=== PATIENT | male | born 1995 | race Caucasian/White ===

== ENCOUNTER → 2019-01-27 11:13 | Outpatient (CLI) | payer MEDICAID, SELFPAY ==
--- NOTE | 2019-01-27 11:25 | RAD_ITS ---
STUDY: X-RAY CHEST REASON FOR EXAM: Male, 23 years old. Bronchitis. TECHNIQUE: PA and lateral views of the chest. COMPARISON: None. FINDINGS: The lungs are mildly hyperexpanded. There is no demonstrated pleural abnormality. Normal size heart. Sternal cerclage wires are present from a prior sternotomy. Normal mediastinum and nikita. Normal visualized pulmonary arteries. Normal visualized aortic arch and descending thoracic aorta. There is a 21 degree dextroscoliosis of the spine centered at T11-12, and mild compensatory levoscoliosis in the upper thoracic region. There is also a moderate lower thoracic lordosis. Normal visualized ribs, clavicles, and shoulders. There is no demonstrated abnormality of the visualized soft tissue structures of the upper abdomen. RAD/Chest PA and Lateral IMPRESSION: 1. There is some hyperexpansion, which could reflect acute or chronic obstructive disease, such as bronchitis. No pneumonic infiltrate. 2. Prior median sternotomy. The heart size and pulmonary vascular pattern are normal. 3. Notable dextroscoliosis and lordosis of the lower thoracic spine. Electronically Signed: Alan Bundy MD at 13:04 EDT , Service support ,
== END ==
PROVIDERS: Family Provider Family Medicine; PCP Family Medicine; Referring Provider Family Medicine; Visit Provider Family Medicine
DX: J20.9 Acute bronchitis, unspecified (principal)
CPT/HCPCS: 71046

== ENCOUNTER 2019-03-04 13:18 | Emergency (ER) | payer MEDICAID, SELFPAY ==
[2019-03-04 13:19] VITALS: BP 126/86; PULSE 102; RESP 20; TEMP 36.8; O2SAT 100; BMI 19.4
--- NOTE | 2019-03-04 13:29 | EKG12_ITS ---
Test Reason : CP Blood Pressure : / mmHG Vent. Rate : 082 BPM Atrial Rate : 082 BPM P-R Int : 142 ms QRS Dur : 078 ms QT Int : 330 ms P-R-T Axes : 072 123 077 degrees QTc Int : 385 ms Sinus rhythm with marked sinus arrhythmia Right axis deviation Abnormal ECG Confirmed by CRISTINA GRACE ([id number]), research editor MODE ORNELAS ([id number]) on 03/08/2019 2:38:43 PM Referred By: YAMILA Confirmed By:CRISTINA GRACE
--- NOTE | 2019-03-04 13:29 | RAD_ITS ---
STUDY: X-RAY CHEST REASON FOR EXAM: Male, 23 years old. Left-sided chest pain. Patient has a history of esophageal carcinoma. TECHNIQUE: PA and lateral views of the chest. COMPARISON: Comparison is made with prior study dated January 27, 2019. FINDINGS: EKG electrodes are seen. The lungs are clear and expanded. There is no demonstrated pleural abnormality. Sternal cerclage wires are present from a prior sternotomy. Normal mediastinum and nikita. Normal visualized pulmonary arteries. Normal visualized aortic arch and descending thoracic aorta. There is a dextroscoliosis of the thoracic spine. Levoscoliosis of the lumbar spine. Normal visualized ribs, clavicles, and shoulders. There is no demonstrated abnormality of the visualized soft tissue structures of the upper abdomen. RAD/Chest PA and Lateral IMPRESSION: No acute abnormality is seen. Electronically Signed: Jaylen Mcclain, at 13:59 EDT , Service support ,
[2019-03-04 13:36] VITALS: O2SAT 98
[2019-03-04 13:40] LABS: Absolute Lymphocyte Count 1.46 X10^3/uL (0.83-4.51); Absolute Neutrophil Count 3.8 X10^3/uL (2.0-7.7); Basophil# 0.04 X10^3/uL; Basophil% 0.7 % (0-1); Eosinophils% 1.7 % (0-5); Hematocrit 46.3 % (40-54); Hemoglobin 16.1 g/dL (13.0-16.5); Lymphocyte # 1.46 X10^3/ul (4.0); Lymphocyte % 25.4 % (19-41); Mean Corp Hgb Conc 34.8 g/dL (32-36); Mean Corpuscular Hgb 30.4 pg (27.0-32.0); Mean Corpuscular Volume 87.4 fL (80-94); Mean Platelet Vol. 10.1 fl (6.2-12.0); Monocyte# 0.36 X10^3/uL; Monocyte% 6.3 % (0-10); NRBC Flagged by Analyzer 0 % (0-5); Neutrophil # 3.78 X10^3/uL (2.7-7.7); Neutrophil % 65.7 % (47-70); Platelet Count 182 K/mm3 (150-450); RBC Distribution Width SD 38.5 fl (35.1-43.9); White Blood Count 5.8 K/mm3 (4.4-11.0)
--- NOTE | 2019-03-04 13:42 | NURSING ---
NO OLD EKG TO OBTAIN
[2019-03-04 13:55] LABS: Anion Gap 9 (5-15); BUN 9 mg/dL (7-18); BUN/Creat Ratio 9.6 RATIO (10-20); Calcium,Total 9.5 mg/dL (8.5-10.1); Chloride 106 mmol/L (98-107); Creatinine, Serum 0.94 mg/dL (0.70-1.30); EST Glomerular Filtration Rate 107 mL/min (>60); Est Glom Filt Rate - Afr Amer 129 mL/min (>60); Estimated Creatinine Clearance 104.97 ml/min; Glucose 104 mg/dL (74-106); Potassium 3.8 mmol/L (3.5-5.1); Sodium Level 143 mmol/L (136-145)
[2019-03-04] MEDS: 0.9% Normal Saline 1,000 ML 999 ML IV (13:56)
--- NOTE | 2019-03-04 14:33 | ED.VIS.CHEST ---
History of Present Illness Chief Complaint: Chest Pain Informant: Patient Narrative: Patient presenting for evaluation secondary to chest pain. Patient states that he has been having chest pain intermittently over the course of the last couple of days. Is not exertional. He states that it will come and go last for a period of time. He states that it associated with some lightheadedness and shortness of breath. Patient states that he had a more severe episode today while he was at rest in the kitchen. Patient called EMS, was given aspirin and nitro and brought to the hospital. Patient has an underlying history of pediatric cancer with past radiation and chemotherapy treatments to his throat. He denies any cardiovascular history, hypertension, hyperlipidemia, smoking, he does have a family history of premature heart disease. He denies any DVT or PE risk factors. Denies any recent travel or surgery, active cancer, hemoptysis, hormone use. Review of systems otherwise negative. Past Medical History - Allergies and Home Meds Allergies/Adverse Reactions: Allergies propofol Allergy (Verified 03/04/19 13:23) Other Primary Care Physician: Donny Cantu MD [Primary Care Provider] - Past Medical History: - - Pediatric throat cancer Smoking Status: Never smoker Review of Systems All systems negative except as indicated Cardiovascular: Reports: Chest pain Respiratory: Reports: Dyspnea Physical Exam Vital Signs/Narrative: Vital Signs Temp Pulse Resp BP Pulse Ox 03/04/19 13:36 98 03/04/19 13:19 98.3 F 102 H 20 H 126/86 H 100 General: - - Tall and thin, well-developed no acute distress Head: Normocephalic, Atraumatic Eyes: Perrl, EOMI ENT: Moist mucous membranes, No rhinorrhea Neck: Supple, Nontender, No JVD Cardiovascular: Regular rate, Regular rhythm, No murmurs, - - 2+ radial pulses bilaterally symmetric, 2+ DP pulses bilaterally symmetric Respiratory: No distress, CTA bilaterally, Chest nontender, - - No evidence of pectus excavatum. Midline sternotomy scar noted. Abdomen: Soft, Nontender, Nondistended, Normal bowel sounds Back: Nontender, Normal Inspection Extremities: Nontender, No edema Skin: Normal color, No rash Neurological: Alert, Oriented x3, Cranial nerves II-XII grossly intact, Normal Strength, Normal Sensation Psychological: Normal affect, Normal Mood Diagnostic/Tx/Re-eval Chest X-Ray - ED: - - PA lateral chest x-ray by my personal interpretation as well as radiology demonstrates scoliosis, no evidence of cardiomegaly, normal mediastinum with no evidence of widening. No evidence of acute pathology. - EKG Initial EKG Interpretation: - - Sinus rhythm of 82. Right axis deviation. sinus arrhythmia. Normal ST segments, twave, normal intervals. No WPW or brugada. - Medical Decision Making Patient presented secondary to chest pain. CBC chemistry troponin were found to be unremarkable. EKG demonstrated a right axis deviation but no evidence of ventricular strain and I do not believe this to be pathologic. Chest x-ray shows normal caliber mediastinum. Patient is tall and thin but does not have any history of connective tissue disease, and does not seem to have stigmata of a aortic dissection or thoracic aneurysm. I do not believe that further imaging is indicated. Patient's heart score is low risk and believe he is appropriate for discharge. He was given reassurance and will follow-up with primary care. ED Disposition - Plan for ED Patient: Disposition: Home or Assisted Living Diagnosis: Chest pain Instructions: CHEST PAIN, Uncertain Cause Referrals: Donny Cantu MD [Primary Care Provider] - 1 Week
[2019-03-04 14:34] VITALS: BP 116/78; PULSE 72; RESP 17; O2SAT 98
== END 2019-03-04 14:50 | disposition home or self-care (01) ==
PROVIDERS: Emergency Provider Emergency Medicine; Family Provider Family Medicine; PCP Family Medicine
DX: R07.89 Other chest pain (principal); R06.02 Shortness of breath; R42 Dizziness and giddiness
CPT/HCPCS: 71046; 80048; 84484; 85025; 93005; 96360; 99285; J7030; A4216

== ENCOUNTER 2019-03-06 10:53 | Emergency (ER) | payer MEDICAID, SELFPAY ==
[2019-03-06 10:53] VITALS: BP 117/64; PULSE 79; RESP 18; TEMP 36.6; O2SAT 99; BMI 17.9
--- NOTE | 2019-03-06 11:10 | RAD_ITS ---
STUDY: X-RAY CHEST REASON FOR EXAM: Male, 23 years old. Chest pain. TECHNIQUE: PA and lateral views of the chest. COMPARISON: 03/04/2019. FINDINGS: The lungs are clear and expanded. There is no demonstrated pleural abnormality. Sternal cerclage wires are present from a prior sternotomy. The heart size is normal. Normal mediastinum and nikita. Normal visualized pulmonary arteries. Normal visualized aortic arch and descending thoracic aorta. There again is dextroscoliosis and increased kyphosis of the thoracic spine. There is decrease height of upper thoracic vertebrae. Normal visualized ribs, clavicles, and shoulders. There is no demonstrated abnormality of the visualized soft tissue structures of the upper abdomen. RAD/Chest PA and Lateral IMPRESSION: No active pulmonary disease. Electronically Signed: Salvatore Zuleta MD at 12:02 EDT Tel , Service support ,
--- NOTE | 2019-03-06 11:10 | EKG12_ITS ---
Test Reason : CP Blood Pressure : / mmHG Vent. Rate : 068 BPM Atrial Rate : 068 BPM P-R Int : 168 ms QRS Dur : 082 ms QT Int : 374 ms P-R-T Axes : 061 104 078 degrees QTc Int : 397 ms Normal sinus rhythm with sinus arrhythmia Rightward axis Borderline ECG Confirmed by CRISTINA GRACE ([id number]), book or script editor ALYSIA STEELE ([id number]) on 03/15/2019 2:29:51 PM Referred By: [email or web address] Confirmed By:CRISTINA GRACE
[2019-03-06] MEDS: Ketorolac 15 MG/ML Vial IV (11:31)
[2019-03-06 11:32] LABS: Absolute Neutrophil Count 3.2 X10^3/uL (2.0-7.7); Basophil# 0.05 X10^3/uL; Eosinophil# 0.09 X10^3/uL; Eosinophils% 1.8 % (0-5); Hematocrit 44.9 % (40-54); Hemoglobin 15.4 g/dL (13.0-16.5); Lymphocyte % 24.4 % (19-41); Mean Corp Hgb Conc 34.3 g/dL (32-36); Mean Corpuscular Hgb 30.5 pg (27.0-32.0); Mean Corpuscular Volume 88.9 fL (80-94); Mean Platelet Vol. 10.6 fl (6.2-12.0); Monocyte# 0.35 X10^3/uL; Monocyte% 7.1 % (0-10); NRBC Flagged by Analyzer 0 % (0-5); Neutrophil # 3.21 X10^3/uL (2.7-7.7); Neutrophil % 65.3 % (47-70); Platelet Count 177 K/mm3 (150-450); RBC Distribution Width CV 12.1 % (11.6-14.6); RBC Distribution Width SD 39.2 fl (35.1-43.9); Red Blood Count 5.05 M/mm3 (4.6-6.2); White Blood Count 4.9 K/mm3 (4.4-11.0)
[2019-03-06 11:37] LABS: Erythrocyte Sedimentation Rate < 1 mm/hr (0-15)
[2019-03-06 11:45] LABS: D-Dimer Quantitative (DVT/PE) < 0.27 FEU/ug/m (0.27-0.49)
[2019-03-06 11:54] LABS: Anion Gap 7 (5-15); BUN 9 mg/dL (7-18); BUN/Creat Ratio 10.3 RATIO (10-20); Calcium,Total 9.2 mg/dL (8.5-10.1); Chloride 107 mmol/L (98-107); Creatinine, Serum 0.88 mg/dL (0.70-1.30); EST Glomerular Filtration Rate 116 mL/min (>60); Est Glom Filt Rate - Afr Amer 140 mL/min (>60); Estimated Creatinine Clearance 103.11 ml/min; Glucose 88 mg/dL (74-106); Magnesium 1.9 mg/dL (1.6-2.6); Potassium 3.9 mmol/L (3.5-5.1); Sodium Level 143 mmol/L (136-145); Thyroid Stim Hormone (TSH) 2.82 uIU/mL (0.358-3.74)
--- NOTE | 2019-03-06 12:27 | ED.VIS.CHEST ---
History of Present Illness Chief Complaint: Chest Pain Informant: Patient Narrative: Patient presenting for evaluation secondary to chest pain. Patient has an underlying history of pediatric throat cancer with history of surgery, radiation, and chemotherapy in the distant past. Patient was here 3 days ago with chest pain, had a work-up that was negative. He reports that he had improvement of that pain, but then today he had reemergence of the pain. He was at rest, is sharp, and is located in his left chest and seemed worse with taking deep breath and associated with some shortness of breath. Patient denies any hemoptysis. He denies any history of DVT or PE. Denies any fevers or onset of infection cough nausea vomiting diarrhea or any skin changes. Review of systems otherwise negative. Past Medical History - Allergies and Home Meds Allergies/Adverse Reactions: Allergies propofol Allergy (Verified 03/04/19 13:23) Other Primary Care Physician: Donny Cantu MD [Primary Care Provider] - Past Medical History: - - Pediatric cancer Smoking Status: Never smoker Review of Systems All systems negative except as indicated Cardiovascular: Reports: Chest pain Respiratory: Reports: Dyspnea Physical Exam Vital Signs/Narrative: Vital Signs Temp Pulse Resp BP Pulse Ox 03/06/19 10:53 97.8 F 79 18 117/64 99 Inital Vital Signs reviewed: Yes General: No Acute Distress, - - Tall thin male Head: Normocephalic, Atraumatic Eyes: Perrl, EOMI ENT: Moist mucous membranes, No rhinorrhea Neck: Supple, Nontender Cardiovascular: Regular rate, Regular rhythm, No murmurs, - - 2+ radial and PT pulses bilaterally symmetric Respiratory: No distress, CTA bilaterally, Chest nontender, - - Midline surgical scar well-healed. No evidence of pectus excavatum. Abdomen: Soft, Nontender, Nondistended, Normal bowel sounds Back: Nontender, Normal Inspection Extremities: Nontender, No edema Skin: Normal color, No rash Neurological: Alert, Oriented x3, Cranial nerves II-XII grossly intact, Normal Strength, Normal Sensation Psychological: Normal affect, Normal Mood Diagnostic/Tx/Re-eval Chest X-Ray - ED: Read by ED Physician, Read by Radiologist, Unchanged - EKG Initial EKG Interpretation: - - Sinus rhythm at 68 with right axis deviation and sinus arrhythmia. Isoelectric ST segments normal T waves. No evidence of acute ischemia or arrhythmia. - Medical Decision Making Patient presented secondary to chest pain. I actually saw this patient 3 days ago and performed his work-up that was negative and discharge the patient. Broader work-up was obtained today. EKG found to be negative. Chest x-ray also found to be negative. CBC chemistry were unremarkable. Troponin again was negative, a d-dimer was performed at this time which was negative, TSH was added which was negative, and magnesium was also obtained which was found to be normal. I added on ESR due to the potential for pericarditis and this was also found to be negative. Patient at this point has no signs of pericarditis, endocarditis, myocarditis, I do not believe that this is a presentation of a thoracic aneurysm or dissection, he has a negative d-dimer making the likelihood of pulmonary embolism very unlikely. He has benign physical exam normal oxygenation and normal vital signs and his heart score is 0. I do not feel the patient requires admission, and this likely is either costochondritis or pleurisy. Patient will be placed on a course of NSAIDs, as well as omeprazole to prevent side effects. ED Disposition - Plan for ED Patient: Disposition: Home or Assisted Living Diagnosis: Pleurisy Instructions: Pleurisy Prescriptions: Naproxen [Naprosyn] 500 mg PO BID #20 tablet Referrals: Donny Cantu MD [Primary Care Provider] - As soon as possible
[2019-03-06 13:00] VITALS: BP 121/68; PULSE 57; RESP 18; O2SAT 99
--- NOTE | 2019-03-06 13:11 | CT_ITS ---
STUDY: CTA CHEST REASON FOR EXAM: Male, 23 years old. Chest pain for 3 days. History of esophageal cancer. RADIATION DOSAGE (If Supplied By Facility): CTDIvol = ( 2.45 ) mGy, DLP = ( 113.54 ) mGycm TECHNIQUE: The examination was performed with the intravenous administration of 75 IV Isovue 370. Post-processing of the angiographic images was performed, with multiplanar reformation. Individualized dose optimization techniques were used for this CT. COMPARISON: None. FINDINGS: Normal enhancement of the main pulmonary artery and right and left pulmonary arteries. Normal enhancement of the bilateral peripheral pulmonary arteries. There is no demonstrated pulmonary embolism. Normal thoracic aorta and visualized great vessels. There is no demonstrated aortic dissection. Sternal cerclage wires are present from a prior sternotomy. Normal mediastinum. Normal hilar regions. The esophagus is somewhat air-filled but difficult to evaluate on this exam. Normal visualized trachea and bronchi. The lungs are well expanded. There are no pulmonary infiltrates. There are no pleural effusions. Normal chest wall structures. There is decrease height of upper thoracic vertebrae. There is increased kyphosis of the upper thoracic spine. Normal visualized upper abdomen. CT/Chest WITH Contrast IMPRESSION: 1. No evidence of pulmonary embolism. 2. No evidence of infiltrates or pleural effusions. Electronically Signed: Salvatore Zuleta MD at 14:05 EDT Tel , Service support ,
[2019-03-06 15:13] VITALS: BP 135/77; PULSE 62; RESP 15; O2SAT 98
== END 2019-03-06 15:14 | disposition home or self-care (01) ==
PROVIDERS: Emergency Provider Emergency Medicine; Family Provider Family Medicine; PCP Family Medicine
DX: R09.1 Pleurisy (principal)
CPT/HCPCS: 71046; 71260; 80048; 83735; 84443; 84484; 85025; 85379; 85652; 93005; 96374; 99285; J7030; Q9967; A4216

== ENCOUNTER → 2019-12-23 13:23 | Outpatient (CLI) | payer MEDICAID, SELFPAY ==
[2019-12-24 12:01] LABS: Hepatitis B Surface Antibody Reactive; Rubella IgG 295.7 IU/mL
[2019-12-25 20:07] LABS: QNTFERON TB Mitogen Value > 10.00 IU/mL (.); QNTFERON TB Nil Value 0.07 IU/mL (.); QNTFERON TB1+ Ag Value 0.04 IU/mL (.); QNTFERON TB2+ Ag Value 0.02 IU/mL (.)
[2019-12-25 22:36] LABS: Mumps Antibody,IgG 53.8 AU/mL (Immune >10.9); QNTIFERON TB Positive Criteria Negative (Negative); Rubeola IgG Ab 45.1 AU/mL (Immune >16.4)
== END ==
PROVIDERS: PCP Family Medicine; Visit Provider Family Medicine
DX: Z00.00 Encounter for general adult medical examination without abnormal findings (principal); Z23 Encounter for immunization; Z28.3 Underimmunization status
CPT/HCPCS: 36415; 86480; 86706; 86735; 86762; 86765

== ENCOUNTER → 2020-01-20 10:12 | Outpatient (CLI) | payer MEDICAID, SELFPAY | PROVIDERS: PCP Family Medicine; Visit Provider Family Medicine | DX: Z02.1 Encounter for pre-employment examination (principal) ==

== ENCOUNTER 2020-06-25 13:43 | Emergency (ER) | payer MEDICAID, SELFPAY ==
[2020-06-25 13:43] VITALS: BP 116/70; PULSE 81; RESP 16; TEMP 36.8; O2SAT 97; BMI 18.4
--- NOTE | 2020-06-25 13:56 | RAD_ITS ---
STUDY: X-RAY - LEFT HAND REASON FOR EXAM: Male, 25 years old. lump in center of hand, no injury -- pain for a couple days TECHNIQUE: 3 view(s) of the hand. COMPARISON: None. FINDINGS: 3 views of the left hand demonstrate no evidence for acute fractures or dislocation. Overall alignment appears satisfactory. Metacarpal bones are intact. Metacarpal phalangeal joints are intact. No evidence for avulsion injuries. Soft tissue prominence in the left hand seen. Please consider MRI exam for complete assessment. IMPRESSION: No acute osseous abnormalities. Soft tissue fullness in the left hand which can be assessed with MRI exam. No osseous erosions however noted. Electronically Signed: Jj Vaughan, at 14:53 EST Tel , Service support , RAD/Hand Min 3 Views
--- NOTE | 2020-06-25 14:01 | ED.DCSUM_ITS ---
History of Present Illness Chief Complaint: Upper Extremity Injury Informant: Patient Narrative: Patient is a 25-year-old male with a past medical history of throat cancer status post chemotherapy and in remission since 2012 who presents to the emergency department for left hand pain. He states that initially started yesterday. He does feel a lump in the palm of his hand. He is never had this before. He is right-handed at baseline. 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 He denies any injury to the area. At rest the pain is only 1 out of 10 but whenever he tries to lift or move anything with the hand it becomes severe. No pain going up the arm. Denies any chest pain or shortness of breath. Past Medical History - Allergies and Home Meds Allergies/Adverse Reactions: Allergies propofol Allergy (Verified 06/25/20 13:45) Other Primary Care Physician: Donny Cantu MD [Primary Care Provider] - Prior records reviewed: Yes Smoking Status: Never smoker Review of Systems All systems negative except as indicated General: Denies: Chills, Fever, Sweats ENT: Denies: Sore throat Cardiovascular: Denies: Chest pain, Palpitations Respiratory: Denies: Dyspnea, Cough, Dyspnea on exertion Gastrointestinal: Denies: Abdominal pain, Nausea, Vomiting Musculoskeletal: Reports: Extremity Pain. Denies: Back pain Skin: Denies: Rash, Wounds Neurological: Denies: Headache, Weakness, Numbness Physical Exam Vital Signs/Narrative: Vital Signs Temp Pulse Resp BP Pulse Ox 06/25/20 13:43 98.2 F 81 16 116/70 97 Inital Vital Signs reviewed: Yes General: Well nourished, Well developed, No Acute Distress Head: Normocephalic, Atraumatic Eyes: Perrl, EOMI Neck: Supple Cardiovascular: Regular rate, Regular rhythm, No murmurs Respiratory: No distress, CTA bilaterally, Chest nontender Abdomen: Nondistended Back: Nontender, Normal Inspection Extremities: No edema, Tenderness - To palm of hand. There is a small subcentimeter hard area over the tendon for what appears to be the fourth digit in the palm of the hand. , - - No overlying skin changes. Neurovascular intact. Brisk capillary refill. 2+ radial pulse. Skin: Normal color, No rash Neurological: Alert, Oriented x3, Cranial nerves II-XII grossly intact, Normal Strength, Normal Sensation Psychological: Normal affect, Normal Mood Diagnostic/Tx/Re-eval Chest X-Ray - ED: - - 3 view hand x-ray of the left extremity interpreted by myself. No acute osseous abnormality. No fractures or dislocations. Agree with radiologist interpretation. - Medical Decision Making Patient presents to the ED for left hand pain. He is felt a mass on the palm of his hand. It is very tender on physical exam. Will check x-ray. He otherwise is in no acute distress. X-ray did not show any obvious acute abnormality except for some soft tissue swelling. No evidence of infection. We will give a orthopedic hand referral which they can order an MRI if this continues to cause him significant discomfort. Strict return precautions were discussed with him including any evidence of infection or increased swelling/pain. He understands and is agreeable this plan. Discharged home in stable condition. Advised to rest the hand is much as possible. All questions were answered. ED Disposition - Plan for ED Patient: Disposition: Home or Assisted Living Diagnosis: Hand pain, left Instructions: ED Pain, Acute, Uncertain Cause Referrals: Donny Cantu MD [Primary Care Provider] - Tang Gresham DO [STAFF PHYSICIAN] - 3-5 Days if not improving
[2020-06-25 15:31] VITALS: RESP 15
== END 2020-06-25 15:32 | disposition home or self-care (01) ==
PROVIDERS: Emergency Provider Emergency Medicine; PCP Family Medicine
DX: M79.642 Pain in left hand (principal)
CPT/HCPCS: 73130; 99282

== ENCOUNTER 2021-01-04 08:25 | Emergency (ER) | payer MEDICAID, SELFPAY ==
[2021-01-04 08:26] VITALS: BP 125/76; PULSE 70; RESP 16; TEMP 36.3; O2SAT 99; BMI 20.7
--- NOTE | 2021-01-04 08:55 | RAD_ITS ---
STUDY: X-RAY - LEFT HAND REASON FOR EXAM: Male, 25 years old. Pain and swelling following injury. TECHNIQUE: 3 view(s) of the hand. COMPARISON: None. FINDINGS: Normal radiocarpal articulation. Normal distal radioulnar joint. Normal visualized carpal bones. Normal carpal articulations Normal carpometacarpal articulation of the thumb. Normal second through fifth carpometacarpal joints. Normal metacarpi. Normal metacarpophalangeal joint of the thumb. Normal interphalangeal joint of the thumb. Normal proximal and distal phalanges of the thumb. Normal metacarpophalangeal joints of the second through fifth fingers. Normal proximal and distal interphalangeal joints of the second through fifth fingers. Normal phalanges of the second through fifth fingers. The soft tissue structures are unremarkable. RAD/Hand Min 3 Views IMPRESSION: Normal x-ray examination of the hand. Electronically Signed: Jaylen Mcclain MD at 9:17 EDT , Service support ,
--- NOTE | 2021-01-04 08:56 | EDS_ITS ---
HPI History of Present Illness Chief Complaint: Upper Extremity Injury Narrative Narrative: 25-year-old male presenting with left hand pain on the palm. 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 He said some some slight swelling in the palm of his hand. He denies hearing a pop or crack. He has some numbness and tingling into his fourth and fifth digits. There has been no erythema or rash. He does not believe he had a rope burn of any sort. [facility] Medical History Cancer Home Medications naproxen 500 mg PO BID #20 tab 03/06/19 [Rx Last Taken Unknown] Allergy/AdvReac Type Severity Reaction Status Date / Time propofol Allergy Other Verified 01/04/21 08:28 Social History Smoking Status: Never smoker ROS ROS ED Constitutional Constitutional ED: Denies chills or sweats Eyes Eyes: Denies blurry vision or diplopia ENT ENT ED: Denies rhinorrhea or sore throat Cardiovascular Cardiovascular: Denies chest pain or palpitations Respiratory/Chest Respiratory/Chest: Denies cough or dyspnea Gastrointestinal Gastrointestinal: Denies abdominal pain, nausea or vomiting Musculoskeletal Musculoskeletal: Denies myalgias or neck pain Integumentary Denies abscess or rash Neurologic Neurologic: Reports paresthesias LUE (Left hand fourth and fifth digits); Denies headache(s) Psychiatric Psychiatric: Denies anxiety or depression EXAM Physical Exam Const Vital Signs: 01/04/21 08:26 Temperature 97.3 F L Temperature Source Temporal Pulse Rate 70 Respiratory Rate 16 Blood Pressure 125/76 H Blood Pressure Mean 92 Pulse Ox 99 Oxygen Delivery Method Room Air Positive well nourished General Appearance ED: NAD HEENT normocephalic and atraumatic Eyes PERRL and EOMs intact bilaterally Resp normal respiratory effort Cardio regular rate and regular rhythm Extremity Right Upper Extremity: hand and digits palpation (Tenderness to palpation of the central hand), ROM (Hand health counselor limited secondary to pain), neurovascular exam (Decreased sensation distally over the fourth and fifth digits.) and other (Brisk cap refill to all 5 fingers.) Neuro oriented x3 Sensorium / Orientation: alert Psych mental status grossly normal Skin Lesions: no lesions Rashes: no rashes MDM MDM MDM Narrative Medical decision making narrative: Patient presenting with left hand pain. He states he is having trouble gripping due to pain in the center of his hand. On examination of the left hand it does appear he has what is likely a ganglion cyst. I did obtain an x-ray of the left hand and on my interpretation there is no acute bony abnormality and the radiologist does agree. Patient was given Dr. Baker for follow-up. He is to use ice and NSAIDs at home. Impression: 1. Ganglion cyst Discharge Plan Triage Chief Complaint: Upper Extremity Injury ED Provider: Vahe García Dx/Rx/DC Orders Instructions: ED Ganglion Cyst Prescriptions: No Action naproxen 500 MG tablet 500 mg PO BID Qty: 20 RF: 0 Primary Care Provider: Donny Cantu Referrals: Dennis Baker MD [STAFF PHYSICIAN] - As soon as possible Donny Cantu MD [Primary Care Provider] - Disposition Disposition: Home, Self Care
== END 2021-01-04 10:17 | disposition home or self-care (01) ==
PROVIDERS: Emergency Provider Student in an Organized Health Care Education/Training Program; PCP Family Medicine
DX: M67.442 Ganglion, left hand (principal); Z79.1 Long term (current) use of non-steroidal anti-inflammatories (NSAID)
CPT/HCPCS: 73130; 99282

== ENCOUNTER 2023-10-06 12:50 | Emergency (ER) | payer MEDICAID, SELFPAY ==
[2023-10-06 12:51] VITALS: BP 102/77; PULSE 118; RESP 16; TEMP 38.1; O2SAT 100; BMI 21.2
--- NOTE | 2023-10-06 13:13 | EX.ED.DYSGE1 ---
HPI History of Present Illness Chief Complaint: General Illness Informant: patient Onset/Context/Timing Onset: Today Context: Sudden Onset Timing: Continuous Quality: Dull, pressure Location: Occipital and frontal headache Worsened by: Light Relieved by: Nothing Narrative Narrative: Patient presents with headache, fevers, chills, and nosebleed that began today. Patient states she woke up this morning with nosebleed and headache. Patient states she took his temperature at home and it was up to 101.7. Patient states he had recent strep throat but completed his antibiotics and denies any sore throat at the present time. Patient admits to a slight cough. Patient states his headache starts in the occipital area and radiates around to the frontal area. Patient describes it as dull and pressure. Patient states it is worse with light. Patient admits to some nausea and vomiting with the headache. Patient denies any sick contacts. PFSH PFS Medical History Allergies Asthma Back problem Bone fracture Cancer Mass of left hand Home Medications albuterol sulfate 90 mcg/actuation aerosol inhaler 2 puff inhalation Q4H PRN shortness of breath or wheezing 10/06/23 [History Last Taken Unknown] Allergy/AdvReac Type Severity Reaction Status Date / Time propofol Allergy Severe Other Verified 10/06/23 12:51 Family History Father Anxiety Depression Hypertension Psychiatric care Mother Depression Grandmother Angina at rest Grandfather Alcohol abuse Grandmother Cancer Grandfather Diabetes Surgical History History of cancer surgery Social History Smoking Status: Never smoker alcohol intake: current substance use type: does not use additional social history: Does Take Aspirin Does Take Ibuprofen ROS ROS ED Constitutional Constitutional ED: Reports chills and fever(s) Eyes Eyes: Reports blurry vision; Denies diplopia ENT ENT ED: Denies rhinorrhea or sore throat Cardiovascular Cardiovascular: Denies chest pain or palpitations Respiratory/Chest Respiratory/Chest: Reports cough; Denies dyspnea Gastrointestinal Gastrointestinal: Reports nausea and vomiting Genitourinary Genitourinary ED: Denies dysuria or hematuria Musculoskeletal Musculoskeletal: Reports neck pain; Denies back pain Integumentary Denies abscess or rash Neurologic Neurologic: Reports headache(s); Denies weakness Allergic/Immunologic Allergic/Immunologic ED: Denies mouth swelling or urticaria EXAM Physical Exam Const Vital Signs: 10/06/23 12:51 10/06/23 12:51 Temperature 100.6 F H Temperature Source Oral Pulse Rate 118 H Respiratory Rate 16 Respiratory Effort Normal Non-Labored Respiratory Pattern Normal Blood Pressure 102/77 Blood Pressure Mean 85 Pulse Ox 100 Oxygen Delivery Method Room Air Positive well nourished and well developed General Appearance ED: well developed and NAD HEENT Reports moist mucous membranes Neck supple and no JVD Chest Wall palpation of chest normal Resp normal respiratory effort and clear to auscultation bilaterally Cardio regular rhythm Rate: tachycardic GI non-tender and non-distended Palpation: soft Extremity normal to inspection Neuro oriented x3, CN's II-XII intact bilaterally and no sensory deficits noted Sensorium / Orientation: alert Psych mental status grossly normal Skin no rashes or lesions noted MDM MDM MDM Narrative Medical decision making narrative: Differential diagnosis includes migraine headache, tension headache, viral upper respiratory infection, pneumonia, gastroenteritis, and viral illness. CT scan of the brain will be obtained to assess for intracranial bleeding and mass. CBC will be obtained to assess for leukocytosis and anemia. Basic metabolic profile will be obtained to assess for electrolyte abnormality and renal function. COVID-19, influenza, and RSV PCR will be obtained to assess for viral illness. Lab Data Attestation: I reviewed the patient's lab results. Lab results narrative: CBC was reviewed. There is mild leukocytosis of 14.4. The remainder is within normal limits. Basic metabolic profile was reviewed and was essentially within normal limits. Serum lactate was reviewed and was normal at 1.2. COVID-19 PCR was reviewed and was negative. Influenza PCR was reviewed and was negative for influenza A and influenza B. RSV PCR was reviewed and was negative. Labs: Laboratory Results - last 24 hr 10/06/23 10/06/23 12:57 13:40 WBC 14.4 H RBC 5.21 Hgb 15.3 Hct 46.4 MCV 89.1 MCH 29.4 MCHC 33.0 RDW Std Deviation 40.6 RDW Coeff of Nidia 12.4 Plt Count 202 MPV 10.4 Immature Gran % (Auto) 0.400 Neut % (Auto) 89.3 H Lymph % (Auto) 4.9 L Marshall % (Auto) 5.0 Eos % (Auto) 0.1 Baso % (Auto) 0.3 Absolute Neuts (auto) 12.8 H Absolute Lymphs (auto) 0.70 L Nucleated RBC % 0 Sodium 137 Potassium 3.9 Chloride 102 Carbon Dioxide 29.0 Anion Gap 6 BUN 10 Creatinine 0.78 Estim Creat Clear Calc 131.94 Est GFR (MDRD) Af Amer 155 Est GFR (MDRD) Non-Af 128 BUN/Creatinine Ratio 12.9 Glucose 98 Lactic Acid 1.2 Calcium 9.6 Radiography Chest X-Ray - ED: 2 View, Read by ED Physician, Read by Radiologist and Chronic Changes Diagnostic Testing: Clinical Impression(s) from Imaging Studies Brain CT 10/06/23 13:25 IMPRESSION: Normal unenhanced CT scan of the brain. Electronically Signed: Zaki Ibarra MD at 14:47 EDT Reading Location ID and State: [facility] / [place] , Service support , Chest X-Ray 10/06/23 14:03 IMPRESSION: 1. Chronic hyperinflation of the lungs. Chronic interstitial scarring and bullous cystic changes in the lung apices. 2. No visualized consolidation. Electronically Signed: Zaki Ibarra MD at 14:21 EDT , PA and lateral chest x-ray was obtained. There are 2 views. On my independent interpretation, lung maddox show chronic hyperinflation. There is chronic interstitial scarring and bullous changes in the lung apices. There is normal cardiac silhouette. Bony thorax is normal. There is no acute process noted. Radiologist also interpreted the x-ray and agrees. CT scan of the brain was obtained. There is no acute intracranial abnormality. This was interpreted by the radiologist and was also independently reviewed by myself. Treatment and Re-Evaluation :: Patient was given IV fluids and Tylenol here. Patient was given Reglan and Benadryl. Patient was given a dose of Toradol. Patient was feeling better on reevaluation. Patient was advised of his findings. Patient was instructed to drink plenty of fluids. Patient was instructed to continue Tylenol and ibuprofen as needed for any fevers. Patient was instructed to follow-up with his primary care physician in 5 to 7 days. Patient understood and was agreeable with the plan. All questions were answered. Discharge Plan Triage Chief Complaint: General Illness ED Provider: Andrew Hernandez Dx/Rx/DC Orders Clinical Impression: Viral illness Instructions: ED Viral Syndrome (Adult) Prescriptions: No Action albuterol sulfate 90 mcg/actuation HFA aerosol inhaler 2 puff INHALATION Q4H PRN (Reason: shortness of breath or wheezing) Patient Comments: PLEASE SEE ATTACHED FOR DETAILED DIRECTIONS Primary Care Provider: Lisa Vines NP Referrals: Lisa Vines NP, [employer] [Primary Care Provider] - 3-5 Days Disposition Disposition: Home, Self Care
--- NOTE | 2023-10-06 13:25 | CT_ITS ---
STUDY: CT BRAIN WITHOUT CONTRAST REASON FOR EXAM: Male, 28 years old. Headache RADIATION DOSAGE (If Supplied By Facility): CTDIvol = ( 47.06 ) mGy, DLP = ( 925.62 ) mGycm TECHNIQUE: Transaxial CT imaging of the brain was performed without administration of intravenous contrast material. Individualized dose optimization techniques were used for this CT. COMPARISON: None. FINDINGS: Normal soft tissue structures. Normal calvarium. No extra-axial fluid collection or hydrocephalus is present. No parenchymal edema is seen. Normal size ventricles and extra-axial spaces for the patient''s age. Normal white matter tracts of the cerebral hemispheres. Normal basal ganglia and thalami. Normal brainstem. Normal cerebellum. There is no intracranial hemorrhage. There are no findings of an acute ischemic infarction. Normal visualized paranasal sinuses. CT/Brain/Head without Contrast IMPRESSION: Normal unenhanced CT scan of the brain. Electronically Signed: Zaki Ibarra MD at 14:47 EDT ,
[2023-10-06 13:37] LABS: Absolute Neutrophil Count 12.8 X10^3/uL (2.0-7.7); Basophil# 0.05 X10^3/uL; Basophil% 0.3 % (0-1); Eosinophil# 0.01 X10^3/uL; Eosinophils% 0.1 % (0-5); Hematocrit 46.4 % (40-54); Hemoglobin 15.3 g/dL (13.0-16.5); Lymphocyte % 4.9 % (19-41); Mean Corpuscular Hgb 29.4 pg (27.0-32.0); Mean Corpuscular Volume 89.1 fL (80-94); Mean Platelet Vol. 10.4 fl (6.2-12.0); Monocyte# 0.72 X10^3/uL; NRBC Flagged by Analyzer 0 % (0-5); Neutrophil # 12.82 X10^3/uL (2.7-7.7); Neutrophil % 89.3 % (47-70); Platelet Count 202 K/mm3 (150-450); RBC Distribution Width CV 12.4 % (11.6-14.6); RBC Distribution Width SD 40.6 fl (35.1-43.9); Red Blood Count 5.21 M/mm3 (4.6-6.2); White Blood Count 14.4 K/mm3 (4.4-11.0)
[2023-10-06] MEDS: 0.9% Normal Saline (1000mL) 1,000 ML 1000 ML IV (13:41)
[2023-10-06] MEDS: Acetaminophen 500 MG Tablet 1000 MG PO (13:42)
[2023-10-06 13:45] LABS: Anion Gap 6 (5-15); BUN 10 mg/dL (7-18); BUN/Creat Ratio 12.9 RATIO (10-20); Calcium,Total 9.6 mg/dL (8.5-10.1); Chloride 102 mmol/L (98-107); Creatinine, Serum 0.78 mg/dL (0.70-1.30); EST Glomerular Filtration Rate 128 mL/min (>60); Est Glom Filt Rate - Afr Amer 155 mL/min (>60); Estimated Creatinine Clearance 131.94 ml/min; Glucose 98 mg/dL (74-106); Potassium 3.9 mmol/L (3.5-5.1); Sodium Level 137 mmol/L (136-145)
--- NOTE | 2023-10-06 14:03 | RAD_ITS ---
STUDY: X-RAY CHEST REASON FOR EXAM: Male, 28 years old. Fever TECHNIQUE: PA and lateral views of the chest. COMPARISON: March 06, 2019 FINDINGS: No visualized consolidation. Chronic hyperinflation of the lungs. Chronic interstitial scarring and bullous cystic changes in the lung apices. There is no demonstrated pleural abnormality. Sternal cerclage wires are present from a prior sternotomy. Normal heart size. Normal mediastinum and nikita. Normal visualized pulmonary arteries. Normal visualized aortic arch and descending thoracic aorta. There is a dextroscoliosis of the thoracic spine. Normal visualized ribs, clavicles, and shoulders. There is no demonstrated abnormality of the visualized soft tissue structures of the upper abdomen. RAD/Chest PA and Lateral IMPRESSION: 1. Chronic hyperinflation of the lungs. Chronic interstitial scarring and bullous cystic changes in the lung apices. 2. No visualized consolidation. Electronically Signed: Zaki Ibarra MD at 14:21 EDT ,
[2023-10-06 14:17] LABS: Lactic Acid 1.2 mmol/L (0.4-1.9)
[2023-10-06] MEDS: DiphenhydrAMINE 50 MG/ML Syringe 25 MG IV (14:34)
[2023-10-06] MEDS: Metoclopramide 10 MG/2 ML Vial IV (14:34)
[2023-10-06 14:51] VITALS: BP 103/67; PULSE 91; RESP 20; O2SAT 96
[2023-10-06] MEDS: Ketorolac 30 MG/ML Syringe IV (15:28)
[2023-10-06 15:54] VITALS: BP 105/80; PULSE 89; RESP 18; TEMP 37.3; O2SAT 98
== END 2023-10-06 15:54 | disposition home or self-care (01) ==
PROVIDERS: Emergency Provider Emergency Medicine; PCP Registered Nurse; Visit Provider Emergency Medicine
DX: B34.9 Viral infection, unspecified (principal); J45.909 Unspecified asthma, uncomplicated; Z79.51 Long term (current) use of inhaled steroids
CPT/HCPCS: 70450; 71046; 80048; 83605; 85025; 87040; 87631; 96361; 96374; 96375; 99283; J7030; A4216

== ENCOUNTER 2024-04-19 17:23 | Emergency (ER) | payer SELFPAY ==
[2024-04-19 17:23] VITALS: BP 123/79; PULSE 86; RESP 16; TEMP 36.6; O2SAT 100; BMI 20.4
--- NOTE | 2024-04-19 19:14 | EDS_ITS ---
HPI History of Present Illness Chief Complaint: Abd Pain [facility] Medical History Allergies Asthma Back problem Bone fracture Cancer Mass of left hand Home Medications ?Medication ?Instructions ?Recorded ?Last Taken ?Type albuterol sulfate 90 mcg/actuation 2 puff inhalation Q4H PRN 10/06/23 Unknown History aerosol inhaler shortness of breath or wheezing Allergy/AdvReac Type Severity Reaction Status Date / Time propofol Allergy Severe Other Verified 04/19/24 17:24 Family History Father Anxiety Depression Hypertension Psychiatric care Mother Depression Grandmother Angina at rest Grandfather Alcohol abuse Grandmother Cancer Grandfather Diabetes Surgical History History of cancer surgery Social History Smoking Status: Never smoker alcohol intake: current substance use type: does not use additional social history: Does Take Aspirin Does Take Ibuprofen EXAM Physical Exam Const Vital Signs: 04/19/24 17:23 04/19/24 19:31 04/19/24 21:00 Temperature 98 F Temperature Source Oral Pulse Rate 86 67 56 L Respiratory Rate 16 17 14 Blood Pressure 123/79 H 98/64 Blood Pressure Mean 93 75 Pulse Ox 100 97 96 Oxygen Delivery Method Room Air Room Air MDM MDM MDM Narrative Medical decision making narrative: HISTORY OF PRESENT ILLNESS: 29-year-old male presents with abdominal pain, notes mucus bowel movement after eating for last 3 days. He notes he has approximate 9 bowel movements per day. He states he does not have a fever, vomiting, no sick contacts travel or antibiotic use. Denies history of abdominal surgeries. Denies any significant past medical history noted to the abdomen. Denies difficulty urinating. No chest pain or shortness of breath endorsed. REVIEW OF SYSTEMS: Pertinent positives: Diarrhea, abdominal Pertinent negatives: As per HPI PHYSICAL EXAM: Nursing triage notes reviewed, Vital signs reviewed Constitutional: please see mdm HENT: MMM Eyes: Pupils equal round and reactive to light, Extraocular muscles intact Neck: No stridor, no JVD, full neck ROM Lungs: Clear to auscultation, No wheezing or rales. No increased work of breathing, no conversational dyspnea, no accessory muscle use, no nasal flaring. No respiratory distress noted Heart: Regular rate and rhythm, No murmurs, No rubs and No gallops, 2+ distal pulses (radial, femoral, posterior tibial) in all extremities Abdomen: Soft, there is no tenderness, rigidity, rebound or guarding, no obvious peritoneal signs, no palpable pulsatile abdominal masses, no auscultated abdominal bruit : No CVAT Extremities: No edema Neuro: No focal neurological deficits, cranial nerves II through XII intact, 5/5 strength in all extremities. Intact sensation to light touch in all extremities, 2+ reflexes bilateral patella tendons. Normal gait. No ataxia. Skin: No rash or lesions noted MEDICAL DECISION MAKING: Chief Complaint: Diarrhea, abdominal pain External records reviewed: Reviewed allergies, problem list, vitals, current medication, reviewed prior advanced imaging the abdomen and pelvis Factors affecting care: none Social determinants of health: none History obtained from others: none Consults: none MDM Narrative: Patient was initially hemodynamically stable, afebrile, nontoxic-appearing. Exam benign. Abdomen soft nontender with no physical exam findings to suggest acute surgical emergency in the belly I considered the following differential diagnosis: AAA, small bowel obstruction, abdominal perforation, appendicitis, pancreatitis, hepatobiliary pathology (acute cholecystitis), mesenteric ischemia, pathology (ie nephrolithiasis, pyelonephritis). I obtained a broad lab workup to further elucidate etiology of the patient complaint. I consider obtaining advanced imaging of the abdomen pelvis without this was not indicated this time given the benign nature of the patient's exam. I this was discussed the patient's care decision making were undertaken. I offered CT scan however and the patient at this was not necessary opted for lab evaluation ALL IMAGES (IF OBTAINED) HAVE BEEN PERSONALLY REVIEWED AND INTERPRETED BY MYSELF. Lipase is wnl indicating no pancreatic inflammation. CBC without leukocytosis, severe anemia, no thrombocytopenia. BMP without evidence of significant electrolyte abnormalities, no anion gap, no acute kidney injury. LFTs show no evidence of hepatobiliary pathology. Urinalysis shows no evidence of urinary inflammation suggestive of UTI Stool culture pending/patient cannot provide a sample Repeat abdominal exam is benign. The synthesis of the patient's history, physical exam and labs suggest no acute life-limiting etiology. Encouraged increase p.o. intake to make of her GI losses. Encouraged GI follow-up for further evaluation and treatment. The patient and/or family, caregivers express understanding. The patient and/or family, caregivers agrees with the plan. Shared decision making: I will have a discussion with the patient and or visitors regarding risk/benefits of further testing or admission. They will be made aware of of the risk/benefits inherent in this decision they will be given the opportunity to voice understanding. Total critical care time today provided was at least 0 minutes. This excludes separately billable procedures. Critical care time (if documented) is secondary to the patient having high probability of clinically significant/life threatening deterioration in the patient's condition which required my urgent intervention. Impression: 1. Abdominal pain 2. Diarrhea 3. Dehydration Dispo: Discharge home This note was generated with TUBE dictation software. It may contain incorrect words, spelling, and punctuation that were not noted in review of the chart prior to signing. Lab Data Labs: Laboratory Results - last 24 hr 04/19/24 04/19/24 19:37 20:05 WBC 5.5 RBC 4.94 Hgb 15.0 Hct 43.9 MCV 88.9 MCH 30.4 MCHC 34.2 RDW Std Deviation 41.4 RDW Coeff of Nidia 12.8 Plt Count 186 MPV 10.2 Immature Gran % (Auto) 0.200 Neut % (Auto) 65.0 Lymph % (Auto) 24.4 Brewster % (Auto) 7.3 Eos % (Auto) 2.4 Baso % (Auto) 0.7 Absolute Neuts (auto) 3.6 Absolute Lymphs (auto) 1.34 Nucleated RBC % 0 Sodium 140 Potassium 4.0 Chloride 106 Carbon Dioxide 30.0 Anion Gap 4 L BUN 10 Creatinine 0.81 Estim Creat Clear Calc 118.03 Est GFR (MDRD) Af Amer 148 Est GFR (MDRD) Non-Af 122 BUN/Creatinine Ratio 12.4 Glucose 110 H Calcium 9.1 Total Bilirubin 0.40 AST 14 L ALT 20 Alkaline Phosphatase 83 Total Protein 7.4 Albumin 4.4 Globulin 3.0 Albumin/Globulin Ratio 1.5 Lipase 42 Urine Color Yellow Urine Clarity Clear Urine pH 7.0 Ur Specific Gervais 1.010 Urine Protein Negative Urine Glucose (UA) Normal Urine Ketones Negative Urine Occult Blood Negative Urine Nitrite Negative Urine Bilirubin Negative Urine Urobilinogen Normal Ur Leukocyte Esterase Negative Urine RBC 0 SEEN Urine WBC 0 SEEN Ur Squamous Epith Cells 0 SEEN Urine Bacteria 0 SEEN Urine Mucus 0 SEEN Discharge Plan Triage Chief Complaint: Abd Pain Other Complaint: Diarrhea ED Provider: Oscar Proctor Dx/Rx/DC Orders Instructions: ED Diarrhea, Unknown Cause, ED Abdominal Pain Unkn Cause Male... Prescriptions: No Action albuterol sulfate 90 mcg/actuation HFA aerosol inhaler 2 puff INHALATION Q4H PRN (Reason: shortness of breath or wheezing) Patient Comments: PLEASE SEE ATTACHED FOR DETAILED DIRECTIONS Primary Care Provider: Lisa Vines NP Referrals: Moi Pedro, [Med Staff - Active Staff] - Activity Restrictions/Additional Instructions: Thank you for trusting us with your care today! Please take Tylenol (2 pills, 650 mg), ibuprofen (2 pills, 400 mg) every 6 hours as needed for pain and fever control. Please drink approximately 8 ounces of liquid per loose bowel movement. Please return to the emergency department if your symptoms change or worsen. Please follow with gastroenterology for further outpatient evaluation and management. Print Language: Mauritanian Disposition Disposition: Home, Self Care
[2024-04-19 19:31] VITALS: BP 98/64; PULSE 67; RESP 17; O2SAT 97
[2024-04-19] MEDS: 0.9% Normal Saline (1000mL) 1,000 ML 999 ML IV (19:36)
[2024-04-19 19:52] LABS: Absolute Lymphocyte Count 1.34 X10^3/uL (0.83-4.51); Absolute Neutrophil Count 3.6 X10^3/uL (2.0-7.7); Basophil# 0.04 X10^3/uL; Basophil% 0.7 % (0-1); Eosinophil# 0.13 X10^3/uL; Eosinophils% 2.4 % (0-5); Hematocrit 43.9 % (40-54); Lymphocyte # 1.34 X10^3/ul (0.83-4.51); Lymphocyte % 24.4 % (19-41); Mean Corp Hgb Conc 34.2 g/dL (32-36); Mean Corpuscular Hgb 30.4 pg (27.0-32.0); Mean Corpuscular Volume 88.9 fL (80-94); Mean Platelet Vol. 10.2 fl (6.2-12.0); Monocyte% 7.3 % (0-10); NRBC Flagged by Analyzer 0 % (0-5); Neutrophil # 3.58 X10^3/uL (2.7-7.7); Platelet Count 186 K/mm3 (150-450); RBC Distribution Width CV 12.8 % (11.6-14.6); RBC Distribution Width SD 41.4 fl (35.1-43.9); Red Blood Count 4.94 M/mm3 (4.6-6.2); White Blood Count 5.5 K/mm3 (4.4-11.0)
[2024-04-19 20:12] LABS: ALB/GLOB Ratio 1.5 RATIO (0.9-2.4); AST(SGOT) 14 U/L (15-37); Alanine Aminotransfer ALT/SGPT 20 U/L (16-61); Albumin, Serum 4.4 g/dL (3.2-5.0); Alkaline Phosphatase 83 U/L (45-117); Anion Gap 4 (5-15); BUN 10 mg/dL (7-18); BUN/Creat Ratio 12.4 RATIO (10-20); Calcium,Total 9.1 mg/dL (8.5-10.1); Chloride 106 mmol/L (98-107); Creatinine, Serum 0.81 mg/dL (0.70-1.30); EST Glomerular Filtration Rate 122 mL/min (>60); Est Glom Filt Rate - Afr Amer 148 mL/min (>60); Estimated Creatinine Clearance 118.03 ml/min; Glucose 110 mg/dL (74-106); Lipase 42 U/L (13-75); Protein, Total 7.4 g/dL (6.4-8.2); Sodium Level 140 mmol/L (136-145)
[2024-04-19 20:15] LABS: Bacteria 0 SEEN /hpf (None Seen); Mucous, Urine 0 SEEN /hpf (<or=2+); Red Blood Cells-Urine 0 SEEN /hpf (0-5); Squamous Epithelial Cells - UA 0 SEEN /hpf (0-5); White Blood Cells 0 SEEN /hpf (0-5)
[2024-04-19 20:18] LABS: Color, Urine Yellow (Yellow); Glucose, Dipstick Normal (Normal); Ketone-Dipstick Negative (Negative); Leukocyte Esterase-Dipstick Negative /ul (Negative); Nitrite-Dipstick Negative (Negative); Occult Blood-Urine Negative /ul (Negative); Protein-Dipstick Negative (Negative); Urine Bilirubin Dipstick Negative (Negative); Urine Clarity Clear (Clear); Urine Urobilinogen Normal (Normal)
[2024-04-19 21:00] VITALS: PULSE 56; RESP 14; O2SAT 96
[2024-04-19 21:42] VITALS: BP 98/64; PULSE 56; RESP 14; TEMP 36.6; O2SAT 96
== END 2024-04-19 21:45 | disposition home or self-care (01) ==
PROVIDERS: Emergency Provider Emergency Medicine; PCP Registered Nurse; Visit Provider Emergency Medicine
DX: R10.9 Unspecified abdominal pain (principal); R19.7 Diarrhea, unspecified; E86.0 Dehydration
CPT/HCPCS: 80053; 81001; 83690; 85025; 96360; 99283; J7030; A4216

== ENCOUNTER 2024-06-08 05:11 | Emergency (ER) | payer SELFPAY ==
[2024-06-08 05:14] VITALS: BP 92/60; PULSE 94; RESP 18; TEMP 36.4; O2SAT 97; BMI 19.8
--- NOTE | 2024-06-08 05:24 | ED.VIS.GI ---
HPI HPI - GI History of Present Illness Chief Complaint: Abd Pain Informant: patient Abdominal Pain/Flank Pain Onset: Yesterday Context: Gradual Onset Timing: Continuous Quality: Cramping Location: Epigastric Current Severity: Mild Maximum Severity: Mild Worsened by: Nothing Relieved by: Nothing Nausea/Vomiting/Emesis GI Symptom: Positive for Nausea and Vomiting Onset: Today and Hours Severity: Moderate Diarrhea/Melena/Hematochezia GI Symptom: Positive for Diarrhea; Negative for Melena or Hematochezia Onset: Today Stool Quality: Positive for Loose Severity: Mild Associated Symptoms Associated Symptoms: Negative for Dysuria, Frequency, Hematuria or Urgency Narrative Narrative: 29-year-old male no prior abdominal surgeries. Works for a local [employer]. States that he has had nausea vomiting diarrhea with upper abdominal cramping since 7 PM last night. No obvious known exposure. Denies any right lower quadrant abdominal pain. No dysuria. No fever. Prior similar symptoms: Yes Recent Illness/Hospitalization: No PFSH PFSH Medical History Mass of left hand Bone fracture Back problem Asthma Allergies Cancer Home Medications ?Medication ?Instructions ?Recorded ?Last Taken ?Type albuterol sulfate 90 mcg/actuation 2 puff inhalation Q4H PRN 10/06/23 Unknown History aerosol inhaler shortness of breath or wheezing omeprazole 40 mg capsule,delayed 40 mg PO DAILY 06/08/24 Unknown History release ondansetron 4 mg disintegrating 4 mg PO Q6H PRN nausea and 06/08/24 Unknown Rx tablet vomiting #10 tabs sertraline 50 mg tablet 50 mg PO DAILY 06/08/24 Unknown History Allergy/AdvReac Type Severity Reaction Status Date / Time propofol Allergy Severe Other Verified 06/08/24 05:14 Family History Father Anxiety Depression Hypertension Psychiatric care Mother Depression Grandmother Angina at rest Grandfather Alcohol abuse Grandmother Cancer Grandfather Diabetes Surgical History History of cancer surgery Social History Smoking Status: Never smoker alcohol intake: current substance use type: does not use additional social history: Does Take Aspirin Does Take Ibuprofen ROS ROS ED ROS Narrative Nausea, vomiting diarrhea. Abdominal cramping. Constitutional Constitutional ED: Denies chills or fever(s) ENT ENT ED: Denies ear pain Cardiovascular Cardiovascular: Denies chest pain Respiratory/Chest Respiratory/Chest: Denies cough or dyspnea Gastrointestinal Gastrointestinal: Reports abdominal pain, diarrhea, nausea and vomiting; Denies constipation or melena Genitourinary Genitourinary ED: Denies dysuria or hematuria Musculoskeletal Musculoskeletal: Denies arthralgias Integumentary Denies abscess Neurologic Neurologic: Denies headache(s) Psychiatric Psychiatric: Denies anxiety Endocrine Endocrinology: Denies polydipsia Hematologic/Lymphatic Hematologic/Lymphatic: Denies easy bleeding Allergic/Immunologic Allergic/Immunologic ED: Denies mouth swelling, tongue swelling or urticaria EXAM Physical Exam Narrative Exam Narrative: 29-year-old male clinically looks dehydrated. Vital signs show blood pressure 92/60. Afebrile. He does not look septic or toxic. H EENT exam pupils round react light. Dry mucous membranes. Posterior pharynx unremarkable. Neck nontender. No lymphadenopathy. Lungs clear to auscultation bilaterally. Heart regular rhythm rate about 95 no murmur. Chest wall ribs nontender. Abdomen soft nondistended normal bowel sounds without peritoneal signs. No obstruction or distention. No hernia or mass. Right upper or right lower quadrant unremarkable. Positive bowel sounds. Moving all 4 extremities. Nontender no deformity. Normal strength. Normal range of motion. Back scoliosis but nontender. Neurologically is awake alert. Answering questions and following commands. Const Vital Signs: 06/08/24 05:14 Temperature 97.6 F L Temperature Source Oral Pulse Rate 94 Respiratory Rate 18 Blood Pressure 92/60 Blood Pressure Mean 70 Pulse Ox 97 Oxygen Delivery Method Room Air Positive well nourished and well developed; Negative for obese, cachectic, contractures or unkempt General Appearance ED: well developed and NAD; Negative for unkempt, cachectic, contractures or pallor Nutritional Appearance: Negative for cachectic or obese HEENT Reports dry mucous membranes normocephalic and atraumatic; Negative for trauma or tenderness Mouth ED: Yes dry mucous membranes Mouth: dry mucous membranes Eyes PERRL and EOMs intact bilaterally General Eye ED: Negative for pale conjunctiva Neck no lymphadenopathy, supple and no JVD Resp normal respiratory effort and clear to auscultation bilaterally Effort and Inspection: Negative for respiratory distress Auscultation: Negative for rales, rhonchi, wheezes or diminished lung sounds Cardio regular rate, regular rhythm, S1 normal heart sound, S2 normal heart sound and no murmurs Rate: Negative for bradycardia or tachycardic Rhythm: Negative for abnormal rhythm GI non-tender, non-distended and no masses Inspection: Negative for abdominal distention Auscultation: normoactive bowel sounds Palpation: soft; Negative for tender, guarding, hernia, mass, pulsatile mass or rebound tenderness present Back/Spine no CVA tenderness Back/Spine Narrative: Scoliosis General Back: Negative for CVA tenderness Cervical Spine: Negative for cervical spine tenderness Thoracic Spine / Upper Back: Negative for thoracic spinal tenderness Lumbar Spine / Lower Back: Negative for lumbar spinal tenderness Extremity full ROM General Extremety ED: Negative for edema or tenderness General Extremity: Negative for edema Neuro CN's II-XII intact bilaterally and moves all extremities Sensorium / Orientation: alert, oriented to person, oriented to place and oriented to time; Negative for orientation impaired, confused, lethargic or stuporous Motor Exam: strength 5/5 throughout Psych mental status grossly normal and thought process normal Appearance: Negative for unkempt Attitude: No agitated Mood & Affect: Negative for depressed, anxious or tearful Skin no wounds General Skin Exam: Negative for jaundice or pallor Lesions: no lesions Rashes: no rashes MDM MDM MDM Narrative Medical decision making narrative: 29-year-old male with nausea vomiting diarrhea suspect secondary to have viral gastroenteritis. Clinically looks dehydrated. He is hypotensive 92/60. Will be treated with IV fluids and Zofran. Screening labs to be obtained. His abdomen benign. I do not think he needs any imaging. Clinically this does not sound nor is his exam consistent with either appendicitis nor acute cholecystitis. Repeat exam patient is doing well at 7 AM. Abdomen is benign. Completely nontender to the right upper or right lower quadrant. He is feeling improved after a liter normal saline and Zofran. His nausea is much improved. He has had no further vomiting or diarrhea since has been here. He has been able to hold down a glass of water and saltine crackers. He is currently drinking some additional ice water. Clinically I think this is a viral gastroenteritis. He will be discharged home with prescription for Zofran. Off work today and tomorrow. Return if worse or follow-up with not improving. History & Record Review Discussion w/independent historian: Patient Lab Data Attestation: I reviewed the patient's lab results. Lab results narrative: CBC shows white count 15.1. H&H is 16.8 and 50. Platelets 219. Chemistries show gap 5. Normal BUN 15 creatinine 0.9. Glucose 128. Liver enzymes normal. Lipase 20. Labs: Laboratory Results - last 24 hr 06/08/24 05:26 WBC 15.1 H RBC 5.65 Hgb 16.8 H Hct 50.0 MCV 88.5 MCH 29.7 MCHC 33.6 RDW Std Deviation 41.1 RDW Coeff of Nidia 12.5 Plt Count 219 MPV 10.0 Immature Gran % (Auto) 0.500 Neut % (Auto) 93.3 H Lymph % (Auto) 2.5 L [place] % (Auto) 2.9 Eos % (Auto) 0.5 Baso % (Auto) 0.3 Absolute Neuts (auto) 14.1 H Absolute Lymphs (auto) 0.38 L Nucleated RBC % 0 Sodium 139 Potassium 3.8 Chloride 104 Carbon Dioxide 29.0 Anion Gap 5 BUN 15 Creatinine 0.99 Estim Creat Clear Calc 93.85 Est GFR (MDRD) Af Amer 117 Est GFR (MDRD) Non-Af 97 BUN/Creatinine Ratio 15.2 Glucose 128 H Calcium 9.5 Total Bilirubin 1.80 H AST 12 L ALT 23 Alkaline Phosphatase 82 Total Protein 8.2 Albumin 4.8 Globulin 3.4 Albumin/Globulin Ratio 1.4 Lipase 20 Discharge Plan Triage Chief Complaint: Abd Pain ED Provider: Guille Stahl Dx/Rx/DC Orders Clinical Impression: Viral gastroenteritis, Acute dehydration, Acute hypotension, Vomiting, Diarrhea Instructions: ED Dehydration (Adult), ED Diarrhea, Viral (Adult), ED Gastroenteritis, Viral (Adult), ED Vomiting (Adult) Prescriptions: New ondansetron 4 mg tablet,disintegrating 4 mg PO Q6H PRN (Reason: nausea and vomiting) Qty: 10 0RF No Action albuterol sulfate 90 mcg/actuation HFA aerosol inhaler 2 puff INHALATION Q4H PRN (Reason: shortness of breath or wheezing) Patient Comments: PLEASE SEE ATTACHED FOR DETAILED DIRECTIONS omeprazole 40 mg capsule,delayed release(DR/EC) 40 mg PO DAILY sertraline 50 mg tablet 50 mg PO DAILY Primary Care Provider: Lisa Vines NP Referrals: Lisa Vines NP, [facility] [Primary Care Provider] - Activity Restrictions/Additional Instructions: Plenty of fluids and rest. Increase your diet slowly as tolerated. Zofran as needed for nausea which she may swallow or let it dissolve under your tongue. Follow-up with your primary care provider if not improving or return if feeling worse. Print Language: Urdu Disposition Disposition: Home, Self Care
[2024-06-08] MEDS: Ondansetron 4 MG/2 ML Vial IV (05:25)
[2024-06-08] MEDS: 0.9% Normal Saline (1000mL) 1,000 ML 999 ML IV (05:25)
[2024-06-08 05:35] LABS: Absolute Lymphocyte Count 0.38 X10^3/uL (0.83-4.51); Absolute Neutrophil Count 14.1 X10^3/uL (2.0-7.7); Basophil# 0.04 X10^3/uL; Basophil% 0.3 % (0-1); Eosinophil# 0.07 X10^3/uL; Eosinophils% 0.5 % (0-5); Hemoglobin 16.8 g/dL (13.0-16.5); Lymphocyte # 0.38 X10^3/ul (0.83-4.51); Lymphocyte % 2.5 % (19-41); Mean Corp Hgb Conc 33.6 g/dL (32-36); Mean Corpuscular Hgb 29.7 pg (27.0-32.0); Mean Corpuscular Volume 88.5 fL (80-94); Monocyte# 0.43 X10^3/uL; Monocyte% 2.9 % (0-10); NRBC Flagged by Analyzer 0 % (0-5); Neutrophil # 14.07 X10^3/uL (2.7-7.7); Neutrophil % 93.3 % (47-70); POSITIVE DIFFERENTIAL YES; Platelet Count 219 K/mm3 (150-450); RBC Distribution Width CV 12.5 % (11.6-14.6); RBC Distribution Width SD 41.1 fl (35.1-43.9); Red Blood Count 5.65 M/mm3 (4.6-6.2); White Blood Count 15.1 K/mm3 (4.4-11.0)
[2024-06-08 05:52] LABS: ALB/GLOB Ratio 1.4 RATIO (0.9-2.4); AST(SGOT) 12 U/L (15-37); Alanine Aminotransfer ALT/SGPT 23 U/L (16-61); Albumin, Serum 4.8 g/dL (3.2-5.0); Alkaline Phosphatase 82 U/L (45-117); Anion Gap 5 (5-15); BUN 15 mg/dL (7-18); BUN/Creat Ratio 15.2 RATIO (10-20); Calcium,Total 9.5 mg/dL (8.5-10.1); Chloride 104 mmol/L (98-107); Creatinine, Serum 0.99 mg/dL (0.70-1.30); EST Glomerular Filtration Rate 97 mL/min (>60); Est Glom Filt Rate - Afr Amer 117 mL/min (>60); Estimated Creatinine Clearance 93.85 ml/min; Globulin 3.4 g/dL (2.2-4.2); Glucose 128 mg/dL (74-106); Lipase 20 U/L (13-75); Potassium 3.8 mmol/L (3.5-5.1); Protein, Total 8.2 g/dL (6.4-8.2); Sodium Level 139 mmol/L (136-145)
[2024-06-08 07:11] VITALS: BP 109/74; PULSE 81; RESP 18; TEMP 37.3; O2SAT 97
== END 2024-06-08 07:12 | disposition home or self-care (01) ==
LOC: ED 05:36
PROVIDERS: Emergency Provider Emergency Medicine; PCP Registered Nurse; Visit Provider Emergency Medicine
DX: A08.4 Viral intestinal infection, unspecified (principal); E86.0 Dehydration; I95.9 Hypotension, unspecified; Z79.899 Other long term (current) drug therapy
CPT/HCPCS: 80053; 83690; 85025; 96361; 96374; 96376; 99285; A4216; J2405

== ENCOUNTER 2024-07-28 09:36 | Emergency (ER) | payer SELFPAY ==
[2024-07-28 09:37] VITALS: BP 144/72; PULSE 69; RESP 20; TEMP 36.4; O2SAT 100; BMI 21.7
--- NOTE | 2024-07-28 09:45 | EKG12_ITS ---
Test Reason : PALP Blood Pressure : */* mmHG Vent. Rate : 66 BPM Atrial Rate : 66 BPM P-R Int : 178 ms QRS Dur : 80 ms QT Int : 374 ms P-R-T Axes : 63 92 76 degrees QTcB Int : 392 ms Normal sinus rhythm Rightward axis Borderline ECG Confirmed by RODRÍGUEZ QUEEN, HENRRY ([id number]), graphics editor DENI RUBIO ([id number]) on 07/29/2024 1:19:24 PM Referred By: Confirmed By: HENRRY ARREGUIN MD
--- NOTE | 2024-07-28 09:45 | EDS_ITS ---
HPI History of Present Illness Chief Complaint: Palpitations Informant: patient Narrative Narrative: 29-year-old male states he has been having episodes of SVT for the past 6 months or so, it has not been very frequent, except he has had multiple episodes in the past 72 hours. Sometimes associated with exertion sometimes random. Other than lightheadedness no other associated symptoms with the episodes. He states when he feels it coming on, he stops what he is doing and does a vagal maneuver and has been able to terminate them all after a minute or 2. He just had an episode called his doctor, this was the second episode today so his doctor advised him t o come to the ER and get checked out. States he is having some chest heaviness right now, nothing pleuritic or radiating, he states this is common for him when he has episodes of SVT and it gradually resolves. 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 He has not seen cardiology yet for this, and is on no AV jane blockers to prevent episodes at this point. 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 [facility] Medical History Mass of left hand Bone fracture Back problem Asthma Allergies Cancer Home Medications ?Medication ?Instructions ?Recorded ?Last Taken ?Type albuterol sulfate 90 mcg/actuation 2 puff inhalation Q4H PRN 10/06/23 Unknown History aerosol inhaler shortness of breath or wheezing omeprazole 40 mg capsule,delayed 40 mg PO DAILY 06/08/24 Unknown History release sertraline 50 mg tablet 50 mg PO DAILY 06/08/24 Unknown History diltiazem HCl 120 mg 120 mg PO DAILY #30 caps 07/28/24 Unknown Rx capsule,extended release 24 hr (Cardizem CD) Allergy/AdvReac Type Severity Reaction Status Date / Time propofol Allergy Severe Other Verified 07/28/24 09:38 Family History Father Anxiety Depression Hypertension Psychiatric care Mother Depression Grandmother Angina at rest Grandfather Alcohol abuse Grandmother Cancer Grandfather Diabetes Surgical History History of cancer surgery Social History Smoking Status: Never smoker alcohol intake: current substance use type: does not use additional social history: Does Take Aspirin Does Take Ibuprofen ROS ROS ED Constitutional Constitutional ED: Denies chills or fever(s) Eyes Eyes: Denies change in vision or diplopia ENT ENT ED: Denies rhinorrhea or sore throat Cardiovascular Cardiovascular: Reports chest pain, lightheadedness, palpitations and racing heartbeat; Denies syncope Respiratory/Chest Respiratory/Chest: Denies cough or dyspnea Gastrointestinal Gastrointestinal: Denies abdominal pain, diarrhea, nausea or vomiting Genitourinary Genitourinary ED: Denies dysuria or hematuria Musculoskeletal Musculoskeletal: Denies back pain or neck pain Integumentary Denies abscess or rash Neurologic Neurologic: Denies headache(s), paresthesias or weakness Psychiatric Psychiatric: Denies anxiety or suicidal thoughts EXAM Physical Exam Const Vital Signs: 07/28/24 09:37 07/28/24 10:00 Temperature 97.5 F L Temperature Source Temporal Pulse Rate 69 Respiratory Rate 20 H Respiratory Effort Normal Non-Labored Respiratory Pattern Normal Blood Pressure 144/72 H Blood Pressure Mean 96 Pulse Ox 100 Oxygen Delivery Method Room Air Positive well nourished and well developed General Appearance ED: well developed and NAD HEENT Reports moist mucous membranes normocephalic and atraumatic Eyes PERRL and EOMs intact bilaterally Neck full ROM and supple Resp normal respiratory effort and clear to auscultation bilaterally Cardio regular rate, regular rhythm and no murmurs Rate: Negative for tachycardic GI non-tender and non-distended Auscultation: normoactive bowel sounds Palpation: soft Back/Spine no CVA tenderness General Back: other FROM Extremity normal to inspection General Extremety ED: Negative for edema, pulses abnormal or tenderness General Extremity: Negative for edema or pulses abnormal Neuro oriented x3, CN's II-XII intact bilaterally and no sensory deficits noted Sensorium / Orientation: awake and alert Motor Exam: strength 5/5 throughout Skin no rashes or lesions noted and no wounds MDM MDM MDM Narrative Medical decision making narrative: EKG normal, labs obtained and unremarkable. I did not obtain a troponin because his EKG is normal, and if he has been having several runs of SVT today, he may have a false positive. Patient was observed for couple hours here and had no recurrent symptoms or dysrhythmias. I discussed with cardiology so we can get him established and get a recommendation for a preventative, Dr. Vidal recommends metoprolol succinate 25 mg. He agrees that Cardizem is reasonable to recommend starting with metoprolol. After I finished talking with him I noticed that the patient has a history of asthma, so I think it would be more appropriate and less likely to give him issues if we do the Cardizem. 120 mg CD. Lab Data Attestation: I reviewed the patient's lab results. Labs: Laboratory Results - last 24 hr 07/28/24 09:50 WBC 5.1 RBC 5.03 Hgb 15.3 Hct 44.3 MCV 88.1 MCH 30.4 MCHC 34.5 RDW Std Deviation 40.4 RDW Coeff of Nidia 12.6 Plt Count 202 MPV 9.7 Immature Gran % (Auto) 0.400 Neut % (Auto) 61.7 Lymph % (Auto) 24.4 [place] % (Auto) 8.7 Eos % (Auto) 3.8 Baso % (Auto) 1.0 Absolute Neuts (auto) 3.1 Absolute Lymphs (auto) 1.23 Nucleated RBC % 0 Sodium 138 Potassium 4.2 Chloride 103 Carbon Dioxide 30.0 Anion Gap 6 BUN 13 Creatinine 0.88 Estim Creat Clear Calc 115.84 Est GFR (MDRD) Af Amer 133 Est GFR (MDRD) Non-Af 110 BUN/Creatinine Ratio 14.7 Glucose 71 L Calcium 9.1 Rhythm Strip Rhythm Strip: Sinus Rhythm Rate: 69 Ectopy: None EKG Initial EKG: Attestation: I personally reviewed and interpreted this EKG as follows: Interpretation: Sinus Rhythm and No Acute Injury Pattern Comments: Nml axis & intervals; nml EKG Management Discussion w/another healthcare provider: [employer] (Cardiology Dr. Vidal) Discharge Plan Triage Chief Complaint: Palpitations ED Provider: Scott Felder Dx/Rx/DC Orders Clinical Impression: Supraventricular tachycardia, paroxysmal Instructions: Supraventricular Tachycardia Prescriptions: New diltiazem HCl [Cardizem CD] 120 mg capsule,extended release 24hr 120 mg PO DAILY Qty: 30 0RF No Action albuterol sulfate 90 mcg/actuation HFA aerosol inhaler 2 puff INHALATION Q4H PRN (Reason: shortness of breath or wheezing) Patient Comments: PLEASE SEE ATTACHED FOR DETAILED DIRECTIONS omeprazole 40 mg capsule,delayed release(DR/EC) 40 mg PO DAILY sertraline 50 mg tablet 50 mg PO DAILY Primary Care Provider: Lisa Vines NP Referrals: Lyndsay Vidal MD [Med Staff - Active Staff] - As soon as possible Print Language: Turkish Disposition Disposition: Home, Self Care
[2024-07-28 10:07] LABS: Absolute Lymphocyte Count 1.23 X10^3/uL (0.83-4.51); Absolute Neutrophil Count 3.1 X10^3/uL (2.0-7.7); Basophil# 0.05 X10^3/uL; Eosinophil# 0.19 X10^3/uL; Eosinophils% 3.8 % (0-5); Hematocrit 44.3 % (40-54); Hemoglobin 15.3 g/dL (13.0-16.5); Lymphocyte # 1.23 X10^3/ul (0.83-4.51); Lymphocyte % 24.4 % (19-41); Mean Corp Hgb Conc 34.5 g/dL (32-36); Mean Corpuscular Hgb 30.4 pg (27.0-32.0); Mean Corpuscular Volume 88.1 fL (80-94); Mean Platelet Vol. 9.7 fl (6.2-12.0); Monocyte# 0.44 X10^3/uL; Monocyte% 8.7 % (0-10); NRBC Flagged by Analyzer 0 % (0-5); Neutrophil # 3.12 X10^3/uL (2.7-7.7); Neutrophil % 61.7 % (47-70); Platelet Count 202 K/mm3 (150-450); RBC Distribution Width CV 12.6 % (11.6-14.6); RBC Distribution Width SD 40.4 fl (35.1-43.9); Red Blood Count 5.03 M/mm3 (4.6-6.2); White Blood Count 5.1 K/mm3 (4.4-11.0)
[2024-07-28 10:18] LABS: Anion Gap 6 (5-15); BUN 13 mg/dL (7-18); BUN/Creat Ratio 14.7 RATIO (10-20); Calcium,Total 9.1 mg/dL (8.5-10.1); Chloride 103 mmol/L (98-107); Creatinine, Serum 0.88 mg/dL (0.70-1.30); EST Glomerular Filtration Rate 110 mL/min (>60); Est Glom Filt Rate - Afr Amer 133 mL/min (>60); Estimated Creatinine Clearance 115.84 ml/min; Glucose 71 mg/dL (74-106); Potassium 4.2 mmol/L (3.5-5.1); Sodium Level 138 mmol/L (136-145)
[2024-07-28 11:38] VITALS: BP 102/69; PULSE 64; RESP 16; TEMP 36.4; O2SAT 95
[2024-07-28] MEDS: dilTIAZem CD 120 MG Capsule PO (11:38)
== END 2024-07-28 11:39 | disposition home or self-care (01) ==
LOC: ED 10:11
PROVIDERS: Emergency Provider Emergency Medicine; PCP Registered Nurse; Visit Provider Emergency Medicine
DX: I47.10 Supraventricular tachycardia, unspecified (principal); J45.909 Unspecified asthma, uncomplicated; Z79.51 Long term (current) use of inhaled steroids; Z79.899 Other long term (current) drug therapy
CPT/HCPCS: 80048; 85025; 93005; 99284; A4216